=== PATIENT | male | born 1955 | race Caucasian/White ===

== ENCOUNTER 2016-05-27 16:11 | Emergency (ER) | payer OTHER ==
[2016-05-27 16:31] VITALS: BP 132/75; PULSE 76; RESP 16; O2SAT 98
[2016-05-27 16:43] VITALS: TEMP 98.2
--- NOTE | 2016-05-27 17:18 | UCPHY ---
[id number] 05/27/16 16:45 HPI/ROS: CHIEF COMPLAINT: left great toe recheck HISTORY OF PRESENT ILLNESS: 61-year-old male presents requesting a recheck of his left great toe. Patient had a foreign body removal here at [facility] 3 weeks ago, a small piece of glass was removed from the plantar aspect of his great toe. Patient reports he was feeling better than the last few days it has become a little more tender and he is wondering if it is infected. Patient denies numbness or tingling to this foot, no drainage, no fevers, no redness. Pain is only when pressure is applied. (July Marlow) Physical Exam: GEN: Awake, alert, oriented, no acute distress RESP: nl resp effort MSK: Left great toe with full flexion and extension against resistance, 2 point discrimination intact, cap refill less than 2 seconds SKIN: Plantar aspect of toe with 2 mm x 2 mm central scab. No surrounding erythema, no fluctuance, mild tenderness to palpation (July Marlow) Constitutional: Initial Vital Signs Temperature (C) 36.7 C 05/27/16 16:27 Heart Rate 76 05/27/16 16:27 Respiratory Rate 16 05/27/16 16:27 Blood Pressure 132/75 H 05/27/16 16:27 O2 Sat (%) 98 05/27/16 16:27 O2 Delivery Mode Room Air Allergies/Adverse Reactions: No Known Allergies Allergy (Verified 05/27/16 16:26) Home Medications: Medication Instructions Recorded Meloxicam 01/04/15 MDM/Departure - MDM ED Course/Re-evaluation: 61-year-old male presents with a recheck of a left great toe wound. No evidence of infection, no evidence of retained foreign body. I have recommended warm soaks 5 times a day for 5 minutes. Patient is to return for any redness, increased pain, swelling, fevers, drainage, any other questions or concerns. (July Marlow) Urgent Care PA supervision Physician documentation: The patient was evaluated and managed by the physician billing and accounting staff assistant. My co- signature indicates that I have reviewed this chart and I agree with the findings and plan of care as documented. I am the secondary supervising physician. (Ernesto Oconnell) - Depart Disposition: Home, Routine, Self-Care Clinical Impression: Visit for wound check Instructions: Soft Tissue Foreign Body (ED) Additional Instructions: Soak your toe in warm water 5 times a day for 10 minutes. Return for any fevers , redness, swelling, drainage or any other questions or concerns. Referrals: Mello Ricardo MD [Primary Care Provider] - As per Instructions - PQRS PQRS Measurement: benton (July Marlow)
== END 2016-05-27 17:26 | disposition home or self-care (01) ==
LOC: CED 16:11
DX: M79.675 Pain in left toe(s) (principal); S90 Superficial injury of ankle, foot and toes; X58.XXXD Exposure to other specified factors, subsequent encounter
CPT/HCPCS: 99213-PO; G0463-PO

== ENCOUNTER 2016-09-08 12:04 | Emergency (ER) | payer OTHER ==
[2016-09-08 12:15] VITALS: BP 137/73; PULSE 66; RESP 18; TEMP 97.7; O2SAT 97
--- NOTE | 2016-09-08 12:42 | EDPHY ---
H & P Time Seen by Provider: 09/08/16 12:10 HPI/ROS: CHIEF COMPLAINT: Left thigh and right foot pain History by patient HISTORY OF PRESENT ILLNESS: 61-year-old man presents complaining of left thigh pain and right foot pain after tripping on a shoe falling down several stairs. Patient states he did not hit his head or lose consciousness. He denies any neck, back, chest or abdomen pain. He thinks that his left thigh went into the edge of 1 of the stairs he complains of severe pain in his lateral thigh area. He is able to ambulate but states that hurts however does not hurt to flex his knee or hip. He also complains of some pain at the base of his 5th metatarsal of his right foot. He took a meloxicam earlier today for his chronic shoulder pain. REVIEW OF SYSTEMS: As in HPI, and all other systems reviewed and are negative Smoking Status: Former smoker Physical Exam: General Appearance: Alert and no distress. Eyes: Pupils equal and round no injection. Musculoskeletal: Neck is supple and nontender. Full range of motion Back. No bony tenderness,, full range of motion Extremities: Left leg with no visible deformity or lesion, full range of motion of left hip, left knee, left ankle, DP pulses 2+ and equal bilaterally, right knee within normal limits, right ankle full range of motion without pain, no malleolar tenderness, positive tenderness and swelling and ecchymoses at base of 5th metatarsal. Wiggles all toes, distal sensation intact, distal cap refill less than 3 seconds. Patient ambulates with limp. Skin: No rashes or lesions. Constitutional: Initial Vital Signs Temperature (C) 36.5 C 09/08/16 12:13 Heart Rate 66 09/08/16 12:13 Respiratory Rate 18 09/08/16 12:13 Blood Pressure 137/73 H 09/08/16 12:13 O2 Sat (%) 97 09/08/16 12:13 O2 Delivery Mode Room Air Allergies/Adverse Reactions: No Known Allergies Allergy (Verified 09/08/16 12:13) Home Medications: Medication Instructions Recorded Meloxicam 01/04/15 MDM/Departure - MDM Imaging: I viewed and interpreted images myself Medications Given: Discontinued Medications Acetaminophen (Tylenol) 1,000 mg PO EDNOW ONE Stop: 09/08/16 13:01 Last Admin: 09/08/16 13:06 Dose: 1,000 mg ED Course/Re-evaluation: 61-year-old man presents with left thigh and left right foot pain after fall down stairs. Patient is ambulatory. He was concerned about femur fracture however there is no clinical evidence for this. X-ray was obtained of the right foot which showed no evidence of fracture patient was given Tylenol and ice in the ED with some improvement in pain. He is discharged home in stable condition. - Depart Disposition: Home, Routine, Self-Care Clinical Impression: Contusion of foot, right Qualifiers: Encounter type: initial encounter Qualified Code(s): S90.31XA - Contusion of right foot, initial encounter Contusion of left thigh, initial encounter Qualifiers: Encounter type: initial encounter Qualified Code(s): S70.12XA - Contusion of left thigh, initial encounter Condition: Good Instructions: Foot Contusion (ED), Hip Contusion (ED) Additional Instructions: You were seen by Dr. Janelle Cameron today. Return for any worsening or new concerns. You may take your meloxicam +Tylenol for pain. Try also your lidocaine patches. Follow up with primary care physician as needed. Referrals: Mello Ricardo MD [Primary Care Provider] - As per Instructions
[2016-09-08] MEDS: ACETAMINOPHEN 500 MG TAB PO ONE (13:06)
== END 2016-09-08 13:36 | disposition home or self-care (01) ==
LOC: CED 12:04
DX: S70.12XA Contusion of left thigh, initial encounter (principal); S90.31XA Contusion of right foot, initial encounter; Z87.891 Personal history of nicotine dependence; W10.9XXA Fall (on) (from) unspecified stairs and steps, initial encounter
CPT/HCPCS: 73630-PO

== ENCOUNTER 2016-10-30 11:28 | Emergency (ER) | payer OTHER ==
[2016-10-30] MEDS ORDERED: LORazepam 2 MG/ML INJ IVP ONE (12:30)
[2016-10-30] MEDS ORDERED: fentaNYL 100 MCG/2 ML INJ IVP ONE (12:30)
[2016-10-30 13:19] VITALS: RESP 16
--- NOTE | 2016-10-30 13:22 | EDPHY ---
H & P Time Seen by Provider: 10/30/16 11:52 HPI/ROS: This patient complains of out painful swollen area near his anus for 5 days that is been steadily worsening. He describes it as a irritation, mild discomfort. He reports having had a similar episode 10 years ago or so with a pilonidal cyst that was excised by either General surgery or ent consultant. He has had no problems since then until now. He has no other associated symptoms. He notes no exacerbating or alleviating factors. There has been no drainage from the area. ROS: Constitutional: No fevers. No fatigue. HEENT: No complaints Pulmonary: No complaints Cardiovascular: No lightheadedness GI: No nausea vomiting. Normal bowel movements without difficulty. 7 point ROS is otherwise negative. Past Medical/Surgical History: Previous abscess knee area with surgical excision per patient. Smoking Status: Former smoker Physical Exam: Physical Exam Vital signs are normal. General: No acute distress Eyes: Pupils equal and react to light. Extraocular motions are intact. Lungs: No respiratory distress. Cardiac: Brisk capillary refill is intact throughout. Abdomen: Soft, nontender Rectal exam: Patient has swelling and tenderness anteriorly-12 o'clock in lithotomy position of the anus on digital rectal exam I do not appreciate any focal tenderness or fluctuance in the rectal valdes. There is a small amount of light brown discharge from anus question stool versus purulence. The patient has tenderness and mild swelling that extends to 9 o'clock in lithotomy position. There is a skin erythema on initial exam extending to the sacral region with minimal warmth to touch but no fluctuance the presacral region or evidence of other abscess. No petechia or purpura. : Circumcised penis, no testicular swelling or erythema. Skin: No rash or pallor. Please see rectal exam above Neuro: GCS 15 with no sensorimotor deficits. Initial differential diagnosis: Perianal abscess with mild cellulitis, perirectal abscess unlikely given exam findings. Constitutional: Initial Vital Signs Temperature (C) 36.6 C 10/30/16 11:43 Heart Rate 74 10/30/16 11:43 Respiratory Rate 18 10/30/16 11:43 Blood Pressure 126/86 H 10/30/16 11:43 O2 Sat (%) 97 10/30/16 11:43 O2 Delivery Mode Room Air Allergies/Adverse Reactions: No Known Allergies Allergy (Verified 09/08/16 12:13) Home Medications: Medication Instructions Recorded Meloxicam 01/04/15 Docusate Sodium [Colace 100 MG (*)] 100 mg PO BID PRN #20 cap 10/30/16 Doxycycline Hyclate [Vibramycin 100 mg PO BID #14 cap 10/30/16 100 MG (*)] Hydrocodone/APAP 5/325 [Cranston 1 - 2 tab PO Q4PRN PRN #12 tab 10/30/16 5/325 (*)] MDM/Departure - MDM Procedures: I&D abscess: After verbal consent, treated the patient with 1 mg of Ativan IV for anxiety and 100 mcg of fentanyl IV for analgesia. He was placed on O2 sat monitor remained conversant throughout with stable vital signs throughout. In the prone position I scrubbed the area with baby shampoo and saline, use 27 gauge needle with 5 mL of 1% plain lidocaine in sodium bicarb buffer at at 10-1 ratio, injected 4 mL with good effect and then used a 15. Scalpel blade to place a 8 mm linear incision at 8 o'clock in lithotomy position. With a Baylee clamp directed toward the 12 o'clock position there is release of moderate amount of purulent material. I massage the area without further purulence. I then irrigated the cavity with a 20 gauge Angiocath 20 cc of saline with clear return. Further massage had no further purulence. I placed quarter-inch packing gauze. The patient tolerated the procedure well. There were no complications. Medications Given: Discontinued Medications Doxycycline Hyclate (Vibramycin 100 Mg Prepack#2) 1 btl TAKEHOME EDNOW ONE Stop: 10/30/16 13:35 Last Admin: 10/30/16 13:38 Dose: 1 btl Fentanyl (Sublimaze) 100 mcg IVP EDNOW ONE Stop: 10/30/16 12:31 Last Admin: 10/30/16 13:07 Dose: 100 mcg Lorazepam (Ativan Injection) 1 mg IVP EDNOW ONE Stop: 10/30/16 12:31 Last Admin: 10/30/16 13:04 Dose: 1 mg ED Course/Re-evaluation: Doxycycline 100 mg p.o. Course: The erythema that was initially present in the presacral region resolved after the procedure. Presumably this erythema was inflammatory rather than cellulitic. I sent a culture which is pending Discussion: Findings most consistent with perianal abscess drained without complications. Cannot entirely rule out communication with rectum given slight discharge from anus initially but again a digital rectal exam no overt evidence of perirectal abscess. The patient does not have clinical findings consistent with sepsis or other complicating factors appears clinically well. I counseled him regarding his perianal abscess and treatment plan. He plans on a family vacation near [place] and will be standing and facility with both the bathtub a shower. I instructed him on how to pull the packing after to 3 days. He will see a physician in follow-up if he does not have resolution of his symptoms with treatment plan. For any ongoing symptoms or provided the phone number for Dr. Calle-general surgeon on-call for further evaluation. - Depart Disposition: Home, Routine, Self-Care Clinical Impression: Perianal abscess Condition: Good Instructions: Doxycycline (By mouth), Abscess (ED) Additional Instructions: Diagnosis: Perianal abscess-drained Plan: Keep packing in place for 2 days of possible, then pulled the packing Clean the area with soapy water after bowel movements. Ibuprofen-600 mg per 6 hours if needed for pain. Tylenol or Vicodin in addition if needed. No driving, alcohol or come Vicodin Take Colace stool softener if her taking Vicodin prevent constipation. Return for any significant worsening despite the treatment plan Follow up with general surgeon listed below if he have any ongoing symptoms despite the treatment plan Prescriptions: Docusate Sodium [Colace 100 MG (*)] 100 mg PO BID PRN #20 cap PRN Reason: Constipation Doxycycline Hyclate [Vibramycin 100 MG (*)] 100 mg PO BID #14 cap Hydrocodone/APAP 5/325 [Cranston 5/325 (*)] 1 - 2 tab PO Q4PRN PRN #12 tab PRN Reason: Pain Referrals: Mello Ricardo MD [Primary Care Provider] - As per Instructions Jordy Calle MD [Medical Doctor] - As per Instructions
[2016-10-30 13:34] VITALS: BP 115/78; PULSE 76; TEMP 97.9; O2SAT 94
[2016-10-30] MEDS ORDERED: DOXYCYCLINE 100 MG PREPACK#2 BTL TAKEHOME ONE (13:34)
== END 2016-10-30 13:34 | disposition home or self-care (01) ==
LOC: CED 11:28
PROC: 0D9QXZZ Drainage of Anus, External Approach (ICD-10-PCS; principal; 2016-10-30)
DX: K61.0 Anal abscess (principal); Z87.891 Personal history of nicotine dependence
CPT/HCPCS: 96374; J2060; J3010

== ENCOUNTER 2017-05-20 17:04 | Emergency (ER) | payer OTHER ==
[2017-05-20 17:11] VITALS: RESP 16
[2017-05-20] MEDS ORDERED: LORazepam 2 MG/ML INJ IVP ONE (17:53)
[2017-05-20] MEDS ORDERED: fentaNYL 100 MCG/2 ML INJ IVP ONE (17:53)
--- NOTE | 2017-05-20 18:43 | EDPHY ---
H & P Time Seen by Provider: 05/20/17 17:20 HPI/ROS: This patient presents with painful perianal swelling over the course of the past 3 days worst 9 today to 5/10 intensity with associated tenderness. The symptoms are similar to prior perianal abscess treated here by myself with I&D in October of 2016, 7 months prior to this visit. On the prior visits a culture of the abscess grew Pseudomonas. The patient reports mild improvement in pain from [id number] analgesics and notes no other exacerbating factors. There has been no drainage bus far from the area. ROS: No fevers or chills. No other constitutional symptoms Integumentary: No skin lesions elsewhere GI: No nausea vomiting Cardiovascular: No lightheadedness 5 point ROS is otherwise negative Past Medical/Surgical History: Prior perianal abscess. Otherwise healthy Smoking Status: Former smoker Physical Exam: General Appearance: Alert, no distress. Eyes: Pupils equal and round no pallor or injection. ENT, Mouth: Mucous membranes moist. Respiratory: There are no retractions, lungs are clear to auscultation. Cardiovascular: Regular rate and rhythm. Rectal exam: At 9 o'clock in lithotomy position the patient has area of erythema fullness and tenderness that extends to the 12 o'clock position. On digital rectal exam I appreciate no tenderness to rectal valdes or areas of swelling. Neurological: GCS 15 with no focal deficits Skin: Warm and dry, no rashes.Extremities are symmetrical, full range of motion. Psychiatric: Mood and affect are normal Initial differential diagnosis: Perianal abscess. Doubt perirectal abscess given current exam findings. Constitutional: Initial Vital Signs Temperature (C) 37.1 C 05/20/17 17:08 Heart Rate 86 05/20/17 17:08 Respiratory Rate 16 05/20/17 17:08 O2 Sat (%) 96 05/20/17 17:08 O2 Delivery Mode Room Air Allergies/Adverse Reactions: No Known Allergies Allergy (Verified 05/20/17 17:11) Home Medications: Medication Instructions Recorded Meloxicam 01/04/15 Ciprofloxacin [Cipro] 500 mg PO BID #14 tab 05/20/17 traMADol [Ultram 50 mg (*)] 50 - 100 mg PO Q4 PRN #15 tab 05/20/17 MDM/Departure - MDM Procedures: Procedure: Abscess drainage. Patient was placed on O2 sat monitor and for analgesia and anxiolysis he is treated with 1 mg of Ativan and 100 mcg of fentanyl. He remained communicative and wear throughout the procedure with no significant sedation. The patient's abscess was located on the perianal region. Risks, benefits, alternatives discussed with the patient and consent obtained. Area scrubbed with chlorhexidine. I then used 1% plain lidocaine, 27 gauge needle -8 mL with good effect The abscess was incised with a 15. and a moderate to large amount of foul-smelling purulent drainage was expressed. I then sent this for culture. The wound was irrigated and packed. The patient tolerated the procedure well.The procedure was performed by [myself. There were no complications. Medications Given: Discontinued Medications Ciprofloxacin (Cipro) 500 mg PO EDNOW ONE PRN Reason: Protocol Stop: 05/20/17 18:55 Last Admin: 05/20/17 19:00 Dose: 500 mg Fentanyl (Sublimaze) 100 mcg IVP EDNOW ONE Stop: 05/20/17 17:54 Last Admin: 05/20/17 18:17 Dose: 100 mcg Lorazepam (Ativan Injection) 1 mg IVP EDNOW ONE Stop: 05/20/17 17:54 Last Admin: 05/20/17 18:16 Dose: 1 mg ED Course/Re-evaluation: Discussion: Perianal abscess. Given the fact that the abscess that same area 6 months ago grew Pseudomonas, will cover him with Cipro. He he understands this plan. Based on examination did not think he has a perirectal abscess. - Depart Disposition: Home, Routine, Self-Care Clinical Impression: Perianal abscess Condition: Good Instructions: Abscess Incision and Drainage (DC) Additional Instructions: Diagnosis: Perianal abscess-drained Plan: Keep packing in place for the next 48 hr of possible then pulled packing do Sitz baths. Ibuprofen and Tylenol for pain. Tramadol in addition if needed for pain Cipro antibiotic Return for any significant worsening despite treatment plan Prescriptions: Ciprofloxacin [Cipro] 500 mg PO BID #14 tab traMADol [Ultram 50 mg (*)] 50 - 100 mg PO Q4 PRN #15 tab PRN Reason: breakthrough pain Referrals: Mello Ricardo MD [Primary Care Provider] - As per Instructions
[2017-05-20 18:50] VITALS: BP 108/70; PULSE 88; TEMP 98.6; O2SAT 93
[2017-05-20] MEDS ORDERED: CIPROFLOXACIN 500 MG TAB PO ONE (18:54)
== END 2017-05-20 19:01 | disposition home or self-care (01) ==
LOC: CED 17:04
PROC: 0D9QXZZ Drainage of Anus, External Approach (ICD-10-PCS; principal; 2017-05-20)
DX: K61.0 Anal abscess (principal); Z87.891 Personal history of nicotine dependence
CPT/HCPCS: 96374; J2060; J3010

== ENCOUNTER 2017-05-22 09:47 | Emergency (ER) | payer OTHER ==
[2017-05-22 10:02] VITALS: RESP 16; TEMP 97.3
--- NOTE | 2017-05-22 10:07 | EDPHY ---
H & P Time Seen by Provider: 05/22/17 10:04 HPI/ROS: Chief complaint. Rectal pain HPI. 62-year-old male presents emergency department with recurrent pain around his bottom. He has had 4 days of pain swelling around the rectum and anus. He was seen in the emergency department 2 days ago and had incision and drainage with packing for a perianal abscess. He was better yesterday and then now worse. He feels the packing has fallen out and feels that pressure is increasing again. Similar symptoms. No fever. ROS Constitutional. no fever/chills, no weakness Eyes. no problems with vision ENT. no sore throat, no nasal drainage Cardiovascular. no chest pain Respiratory. no shortness of breath, no cough Abdominal. no abdominal pain, no nausea/vomiting, no diarrhea . no problems urinating MS. no calf pain/swelling, no neck/back pain, no joint pain Skin. Pain and swelling around anus Lymph. no swollen glands Neuro. no headache, no dizziness, no difficulty walking or with speech Past Medical/Surgical History: Perianal abscess, hernia repair Social History: Single, nonsmoker, no alcohol Smoking Status: Former smoker Physical Exam: General Appearance: Well-developed male mild distress vital signs are stable Eyes: Pupils equal and round no pallor or injection. ENT, Mouth: Mucous membranes are moist. Respiratory: There are no retractions, lungs are clear to auscultation. Cardiovascular: Regular rate and rhythm. Gastrointestinal: Abdomen is soft and nontender, no masses, bowel sounds normal. Neurological: Awake and alert, sensory and motor exams grossly normal. Skin: At the 9 o'clock position adjacent to the anus there is induration, swelling, erythema. The previous incision is healed over. No evidence for packing. Musculoskeletal: Neck is supple nontender. Extremities symmetrical, full range of motion. Psychiatric: Patient is oriented X 3, there is no agitation. Constitutional: Initial Vital Signs Temperature (C) 36.3 C 05/22/17 09:57 Heart Rate 66 05/22/17 09:57 Respiratory Rate 16 05/22/17 09:57 Blood Pressure 128/88 H 05/22/17 09:57 O2 Sat (%) 96 05/22/17 09:57 O2 Delivery Mode Room Air Allergies/Adverse Reactions: No Known Allergies Allergy (Verified 05/22/17 10:02) Home Medications: Medication Instructions Recorded Meloxicam 01/04/15 Ciprofloxacin [Cipro] 500 mg PO BID #14 tab 05/20/17 traMADol [Ultram 50 mg (*)] 50 - 100 mg PO Q4 PRN #15 tab 05/20/17 Medical Decision Making Procedures: IV normal saline 1 mg Ativan 100 mcg fentanyl IV Procedure incision and drainage of abscess--after sterile preparation 1% lidocaine with epinephrine is infiltrated into the indurated area. A stab incision is made with a 11. Blade. Moderate amount of purulence is obtained. The cavity is probed to break up loculations. It is irrigated with normal saline. It is packed with approximately 4 in of iodoform ribbon. Patient tolerates the procedure well ED Course/Re-evaluation: On re-evaluation the patient is stable. He and I discussed previous culture results, treatment plan including criteria for return importance of follow-up and further evaluation. He expresses understanding and agreement Review of culture from May 20 shows gram-negative rebecca. 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 No evidence for intra rectum process or fistula Reaccumulation of perianal abscess - Data Points Medications Given: Discontinued Medications Fentanyl (Sublimaze) 100 mcg IVP EDNOW ONE Stop: 05/22/17 10:20 Last Admin: 05/22/17 10:41 Dose: 100 mcg Lorazepam (Ativan Injection) 1 mg IVP EDNOW ONE Stop: 05/22/17 10:20 Last Admin: 05/22/17 10:38 Dose: 1 mg Departure - Departure Disposition: Home, Routine, Self-Care Clinical Impression: Perianal abscess Condition: Good Instructions: Rectal Abscess (ED) Additional Instructions: Warm moist compresses 2-3 times daily. May sit in hot tub. Continue Cipro antibiotic. Return for worsening symptoms. Packing out 2 days. Follow up with Dr. Ricardo in 2-3 days if not improving Referrals: Mello Ricardo MD [Primary Care Provider] - 2-3 days, if not improved
[2017-05-22] MEDS ORDERED: LORazepam 2 MG/ML INJ IVP ONE (10:19)
[2017-05-22] MEDS ORDERED: fentaNYL 100 MCG/2 ML INJ IVP ONE (10:19)
[2017-05-22 11:45] VITALS: BP 117/78; PULSE 72; O2SAT 94
== END 2017-05-22 11:47 | disposition home or self-care (01) ==
LOC: CED 09:47
PROC: 0D9QXZZ Drainage of Anus, External Approach (ICD-10-PCS; principal; 2017-05-22)
DX: K61.0 Anal abscess (principal); Z87.891 Personal history of nicotine dependence
CPT/HCPCS: 96374; J2060; J3010

== ENCOUNTER 2017-07-22 09:57 | Emergency (ER) | payer OTHER ==
[2017-07-22 10:09] VITALS: RESP 18; TEMP 97.9; O2SAT 96
--- NOTE | 2017-07-22 12:33 | EDPHY ---
H & P Time Seen by Provider: 07/22/17 10:00 HPI/ROS: CHIEF COMPLAINT: Right flank pain HISTORY OF PRESENT ILLNESS: Patient presents complaining of right flank pain. He states that started 4-5 weeks ago as right CVA tenderness. He thought it might be related to muscle strain. 3-4 weeks ago he noticed some achy sensation to the groin and right testicle. Last night he states he felt"urgency "similar to when he had kidney stones in the past. Some pressure as well. He also states he had blood in his semen Tuesday. Mild dysuria. No nausea, vomiting, diarrhea. No fevers or chills. Also states over a long time, years, he has had sensation of hot,"clammy"legs at night. Finally he states he"feels like shit". He admits that he has a 16-year-old daughter who is going through a lot of problems right now which has caused a lot of stress. REVIEW OF SYSTEMS: Constitutional: No fever, no chills. Poor sleep. Eyes: No discharge. ENT: No sore throat. Cardiovascular: No chest pain, no palpitations. Respiratory: No cough, no shortness of breath. Gastrointestinal: No abdominal pain, no vomiting. Genitourinary: Mild dysuria, flank pain, blood in semen. Musculoskeletal: Right-sided back pain. Skin: No rashes. Neurological: No headache. General Appearance: Alert, no distress. Eyes: Pupils equal and round no pallor or injection. ENT, Mouth: Mucous membranes moist. Respiratory: There are no retractions, lungs are clear to auscultation. Cardiovascular: Regular rate and rhythm. Gastrointestinal: Abdomen is soft and nontender, no masses, bowel sounds normal. Normal exam with no discharge, rashes. Normal testicular lie bilaterally. Mild tenderness to the right testicle in the area of the epididymis Neurological: Cranial nerves intact, no focal neurologic deficits. Alert. Normal gait. Skin: Warm and dry, no rashes. Musculoskeletal: Neck is supple nontender. Extremities are symmetrical, full range of motion, no edema. Psychiatric: Patient is oriented X 3, there is no agitation. Medical/surgical history: History of previous kidney stones. History of prostate cancer currently being monitored with last biopsy showing low Sinclair score. Social history: Nonsmoker Smoking Status: Former smoker Constitutional: Initial Vital Signs Temperature (C) 36.6 C 07/22/17 10:06 Heart Rate 68 07/22/17 10:06 Respiratory Rate 18 07/22/17 10:06 Blood Pressure 123/91 H 07/22/17 10:06 O2 Sat (%) 96 07/22/17 10:06 O2 Delivery Mode Room Air Allergies/Adverse Reactions: No Known Allergies Allergy (Verified 07/22/17 10:05) Home Medications: Medication Instructions Recorded Meloxicam 01/04/15 Medical Decision Making - Diagnostics Imaging Results: Imaging Impressions Abdomen/Pelvis CT 07/22/17 11:15 Impression: 1. No evidence for nephrolithiasis in the right kidney or right hydronephrosis or right ureteral calculus. There is an irregular 10-mm calculus in the left- sided bladder adjacent to the ureterovesical junction with possible adjacent bladder wall thickening. Recommend neurology consultation and cystoscopy for further evaluation to exclude a bladder mass. Prostate is also enlarged and nodular and nonspecific. 3. Moderate constipation. No CT findings suggest appendicitis, although the appendix is not definitely visualized. 4. Other chronic findings as above. Results called and discussed with Dr. Emilee Mcrae on July 22, 2017 at 1212 hours. Attention: This CT examination is specifically designed to evaluate patients who are clinically suspected of having acute obstructive uropathy. This examination does not use radiographic contrast, and as such, provides only a limited evaluation of the abdomen, pelvis and retroperitoneum. If there is further clinical suspicion for pathological conditions other than obstructive uropathy, a complete CT evaluation of the abdomen and pelvis utilizing intravenous, oral, and rectal contrast should be considered. Testicular Ultrasound 07/22/17 11:15 Impression: Minimal left hydrocele. Normal testicular ultrasound. Results called and discussed with Emilee Mcrae MD, on 07/22/2017, 12:14. Imaging: Discussed imaging studies w/ call manager Radiologist ED Course/Re-evaluation: Patient stable on re-evaluation. Reviewed CT and ultrasound results. Also reviewed urine results. Discussed the findings of the 10 mm calcified stone like mass within the bladder at the left UVJ. Bladder wall thickening noted. Recommended he see his urologist, Dr. Marvin Mariano, for further workup. Differential Diagnosis: Differential diagnosis includes but is not limited to kidney stone, pyelonephritis, testicular torsion, epididymitis, prostatitis, appendicitis. After evaluation no evidence of acute abdominal process, active infection, ureteral stone. Unclear cause of patient's symptoms but has urology follow-up and understands return precautions. Stable for discharge. - Data Points Laboratory Results: 07/22/17 07/22/17 11:23 10:11 Urine Color YELLOW Urine Appearance CLEAR Urine pH 5.5 (5.0-7.5) Ur Specific [place] <= 1.005 (1.002-1.030) Urine Protein NEGATIVE (NEGATIVE) Urine Ketones NEGATIVE (NEGATIVE) Urine Blood NEGATIVE (NEGATIVE) Urine Nitrate NEGATIVE (NEGATIVE) Urine Bilirubin NEGATIVE (NEGATIVE) Urine Urobilinogen 0.2 EU EU (0.2-1.0) Ur Leukocyte Esterase NEGATIVE (NEGATIVE) Urine Glucose NEGATIVE (NEGATIVE) Stool Occult Bld Scrn NEGATIVE (NEGATIVE) Departure - Departure Disposition: Home, Routine, Self-Care Clinical Impression: Acute flank pain Condition: Good Instructions: Flank Pain (ED) Additional Instructions: Ibuprofen and Tylenol as discussed. Consider therapy as we talked about as well. See Dr. Marvin Mariano in 2 weeks as scheduled. Please return to the emergency department if you develop new or more concerning symptoms. Referrals: Mello Ricardo MD [Primary Care Provider] - As per Instructions Deidra Doe MD [Medical Doctor] - As per Instructions
[2017-07-22 12:58] VITALS: BP 134/85; PULSE 64
== END 2017-07-22 12:39 | disposition home or self-care (01) ==
LOC: CED 09:57
DX: R10.9 Unspecified abdominal pain (principal); Z87.891 Personal history of nicotine dependence
CPT/HCPCS: 74176-PO; 76870-PO; 81003-PO; 82270-PO

== ENCOUNTER 2017-12-31 19:39 | Emergency (ER) | payer OTHER ==
--- NOTE | 2017-12-31 20:02 | EDPHY ---
H & P Stated Complaint: ANAL ABCESS ON ABX WTHOUT RELIEF Time Seen by Provider: 12/31/17 19:52 HPI/ROS: CHIEF COMPLAINT: HISTORY OF PRESENT ILLNESS: 62-year-old male in the ER with 2 complaints. 1st and primary complaint is the worsening of perianal abscess. Patient has a history of recurrent perianal abscess, saw Dr. Granado 3 days ago for symptoms consistent with early perianal abscess, started on Cipro and Flagyl at that time, in the ER today (Tuesday) for worsening symptoms. No pain with defecation. No drainage. No fever or chills. No flu-like symptoms. 2nd complaint is intermittent, mild dysuria after trans urethral resection of ureterocele and laser lithotripsy of stone at [facility] with Dr. Jacky Gonzales on 12/22/2017 PRIMARY CARE PROVIDER: REVIEW OF SYSTEMS: A ten point review of systems was performed and is negative with the exception of the items mentioned in the HPI PAST MEDICAL & SURGICAL HISTORY: Recurrent perianal abscess. SOCIAL HISTORY: Nonsmoker PHYSICAL EXAM (Prior to examination, patient consented to physical exam, hands were washed and my usual and customary physical exam procedures followed) 1) GENERAL: Well-developed, well-nourished, alert and oriented. Answering questions appropriately 2) HEAD: Normocephalic 3) HEENT: Sclera anicteric. 4) NECK: Full range of motion. 5) LUNGS: Breathing comfortably 6) HEART: Regular rate and rhythm. 7) ABDOMEN: No guarding 8) MUSCULOSKELETAL: Moving all extremities 9) BACK: No obvious trauma, no visual or palpable abnormality. 10) SKIN: No rash, no petechiae. 11) (with nurse Magdalena at bedside): Erythema, induration with fluctuance at the 7 o'clock position. Old scar noted at similar location. No drainage. No perineal involvement. No crepitus. DIFFERENTIAL DIAGNOSIS: In no particular include but limited to perianal abscess, perirectal abscess, cellulitis - Personal History Current Tetanus/Diphtheria Vaccine: Yes - Medical/Surgical History Hx Asthma: No Hx Chronic Respiratory Disease: No Hx Diabetes: No Hx Cardiac Disease: No Hx Renal Disease: No Hx Cirrhosis: No Hx Alcoholism: No Hx HIV/AIDS: No Hx Splenectomy or Spleen Trauma: No Other PMH: Med hx- SKIN CA WITH SURGICAL REMOVAL, kidney stones. Surg-HERNIA REPAIR, LEFT SHOULDER REPLACEMENT - Social History Smoking Status: Former smoker Constitutional: Initial Vital Signs Temperature (C) 36.6 C 12/31/17 19:49 Heart Rate 84 12/31/17 19:49 Respiratory Rate 16 12/31/17 19:49 Blood Pressure 108/71 12/31/17 19:49 O2 Sat (%) 95 12/31/17 19:49 O2 Delivery Mode Room Air Allergies/Adverse Reactions: No Known Allergies Allergy (Verified 12/20/17 14:56) Home Medications: Medication Instructions Recorded Meloxicam 01/04/15 Cipro 12/31/17 Flagyl 500 mg (*) 12/31/17 Medical Decision Making - Diagnostics Imaging Results: Imaging Impressions Extremity Ultrasound 12/31/17 20:09 Impression: Left perirectal abscess. Findings and recommendations discussed with Emergency Department Physician Link Cutter, Tim Fry PA-C, at 2055 hours, on December 31, 2017. Final report concurs with initial preliminary interpretation. Procedures: 10:04 p.m.: Procedure: Abscess drainage. The patient's abscess was located on the perianal region. I obtained written informed consent from the patient to drain the abscess who was informed about the possibility of bleeding , pain, infection, recurrence of abscess. The abscess was incised with a scalpel and a large amount of purulent drainage was expressed. I irrigated the wound and placed some packing. The wound culture obtained. The patient tolerated the procedure well. The procedure was performed by myself. ED Course/Re-evaluation: 8:13 p.m.: Patient has fluctuance in the perianal region. We discussed needle aspiration, incision and drainage. He would like an ultrasound of this area prior to any intervention. On exam he has no evidence of Mj's gangrene no evidence of perineal involvement no evidence of systemic involvement. I saw this patient independently based on established practice protocols. Care of patient under supervision of secondary supervising physician Dr Red Dorado with whom I discussed case. He also describes dysuria since urologic intervention by Dr. Jacky Gonzales 1 week ago. Will obtain urinalysis as well. No flank pain. No flu-like symptoms. 8:30 p.m.: Patient has a 3 cm x 2 cm fluid collection at the 7 o'clock position ultrasound. Patient requests that only a surgeon evaluate and perform incision drainage on him. Consultation with Dr. Jadyn Prieto on-call for Dr. Granado, she requests that the on-call trauma surgeon Dr. Fernando Hernadez evaluate the patient 8:55 p.m.: Consultation with Dr. Cristhian Hernadez who will evaluate patient 9:30 p.m.: Dr. Cristhian Hernadez has evaluated the patient, has offered to take patient to the operating room to perform incision and drainage under general anesthesia which the patient declined. Dr. Hernadez has offered to perform incision and drainage in the ER however this could not be done immediately as Dr Hernadez has a case in the ER. The patient consented to let me the performed the procedure in the ER if he were premedicated with fentanyl. He drove to the ER but will get a ride home. Indications risks benefits discussed with patient and he he provided written consent. See informed consent form which he signed. Today is Tuesday. He will follow up with Dr. Granado on Tuesday. Patient has been informed that he may necessitate further incision and drainage should further areas of fluctuance developed. Patient verbalized understanding of this. Wound aspirate sent to laboratory for analysis. 10:06 p.m.: Incision and drainage performed in the ER which he tolerated well. He is noted to have pyuria and bacteriuria on urinalysis. He is already on ciprofloxacin. Recommend he continue taking this. Doubt pyelonephritis. Doubt urosepsis. Patient feels comfortable being discharged. - Data Points Laboratory Results: 12/31/17 20:19 Urine Color YELLOW Urine Appearance CLEAR Urine pH 5.0 (5.0-7.5) Ur Specific [place] 1.028 (1.002-1.030) Urine Protein NEGATIVE (NEGATIVE) Urine Ketones NEGATIVE (NEGATIVE) Urine Blood 2+ H (NEGATIVE) Urine Nitrate NEGATIVE (NEGATIVE) Urine Bilirubin NEGATIVE (NEGATIVE) Urine Urobilinogen NEGATIVE EU EU (0.2-1.0) Ur Leukocyte Esterase 1+ H (NEGATIVE) Urine RBC 15-25 /hpf H /hpf (0-3) Urine WBC 10-15 /hpf H /hpf (0-3) Ur Epithelial Cells NONE SEEN /lpf /lpf (NONE-1+) Urine Mucus TRACE /lpf /lpf (NONE-1+) Urine Glucose NEGATIVE (NEGATIVE) Medications Given: Discontinued Medications Fentanyl (Sublimaze) 100 mcg IVP EDNOW ONE Stop: 12/31/17 21:16 Last Admin: 12/31/17 21:38 Dose: 100 mcg Departure - Departure Disposition: Home, Routine, Self-Care Clinical Impression: Perianal abscess Condition: Good Instructions: Rectal Abscess (ED), Narcotic-Analgesic/Acetaminophen (By mouth) Additional Instructions: Keep taking your antibiotics as directed. Follow up with Dr. Granado on Tuesday. Referrals: Braydon Granado MD [Medical Doctor] - 01/02/18
[2017-12-31] MEDS ORDERED: fentaNYL 100 MCG/2 ML INJ IVP ONE (21:15)
[2017-12-31 21:40] VITALS: BP 122/75
--- NOTE | 2017-12-31 21:50 | PDCONSULT ---
Ins[employer] Note: CC: perianal pain HPI: 62 y/o male with a one week hx of perianal pain. He saw Dr. Granado who started him on Levaquin/Flagyl for a recurrent chad-anal abscess. He returns tonight with worsening pain. He has had no spontaneous drainage from the area. He has had this drained 3 prior times in the past year or so, though he is somewhat vague about the details. 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 observation on current antibiotics He would prefer to have it drained in the ED under local anesthesia and I recommended that Ramon Fry PA-C perform the procedure as I will be ' tied up in surgery for the next hour or so. He was agreeable. Maru Hernadez MD, FACS
[2017-12-31] MEDS ORDERED: HYDROCOD/APAP 5/325 PREPACK#6 BTL TAKEHOME ONE (22:32)
== END 2017-12-31 22:41 | disposition home or self-care (01) ==
PROC: 0D9QXZZ Drainage of Anus, External Approach (ICD-10-PCS; principal; 2017-12-31)
DX: K61.0 Anal abscess (principal); R30.0 Dysuria; Z87.891 Personal history of nicotine dependence
CPT/HCPCS: 96374; J3010